=== PATIENT | female | born 1990 | race Caucasian/White ===

== ENCOUNTER 2019-02-10 08:42 | Outpatient (CLI) | payer OTHER ==
--- NOTE | 2019-02-10 09:11 | RAD ---
Exam: 3 views of lumbar spine History low back pain. Comparison none FINDINGS: Upright lateral neutral, lateral flexion and lateral extension views are submitted. 5 lumba r type vertebral bodies. Vertebral body height is maintained. No fracture. Disc space heights are preserved. No spondylolisthesis or spondylolysis. No abnormal motion upon extension or flexion IMPRESSION: Unremarkable exam.
--- NOTE | 2019-02-10 09:19 | RAD ---
EXAM: XR Thoracic Spine 3 V STANDARD PROVIDED CLINICAL HISTORY: Pain in thoracic spine. COMPARISON: None FINDINGS: The vertebral body heights and intervertebral disc spaces are within normal limits. No fracture or diaz bluxation is seen. No other findings IMPRESSION: No acute findings involving the thoracic spine.
== END 2019-02-10 08:43 | disposition home or self-care (01) ==
LOC: TBSIIMAG 08:42
PROVIDERS: ATTEND Neurological Surgery
DX: M54.5 Low back pain (principal); M54.6 Pain in thoracic spine
CPT/HCPCS: 72072; 72100